=== PATIENT | male | born 1980 ===

== ENCOUNTER 2018-10-20 05:48 | Inpatient (IN) | payer OTHER ==
[~2018-10-20] VITALS: Ht 172.7 cm; Wt 84.4 kg
[2018-10-20] VITALS (16 sets, daily range): BP systolic 103–130; BP diastolic 54–86
[~2018-10-20 05:48] MED LIST: NKM
[2018-10-20] MEDS ORDERED: HYDROcodone/Acetamin 10/325 tab ORAL PRN (06:30)
[2018-10-20] MEDS ORDERED: PCA Morphine 1mg/ml 30 ML IV PRN (06:30)
[2018-10-20] MEDS ORDERED: Morphine Sulfate 4mg/ml Inj (IV USE ONLY) IM PRN (06:30)
[2018-10-20] MEDS ORDERED: LORazepam 0.5mg tab ORAL PRN (06:30)
[2018-10-20] MEDS ORDERED: Hydromorphone 0.5mg/0.5ml inj IVP PRN ×2 (06:30→06:45)
[2018-10-20] MEDS ORDERED: Midazolam 2mg/2ml Inj ONE (06:35)
[2018-10-20] MEDS ORDERED: fentaNYL 100 mcg/2 mL IV ONE (06:35)
[2018-10-20] MEDS ORDERED: Lidocaine 1% MPF 10mg/ml 5ml ONE (06:35)
[2018-10-20] MEDS ORDERED: Thrombin 5000 units TOPIC ONE (06:37)
[2018-10-20] MEDS ORDERED: Heparin 5000 units/ml inj ONE (06:37)
[2018-10-20] MEDS ORDERED: Lidocaine 1% Plain 30 ml INJ ONE (06:38)
[2018-10-20] MEDS ORDERED: Gelfoam Size TOPIC ONE (06:38)
[2018-10-20] MEDS ORDERED: Bacitracin 50000 Units Vial ONE (06:38)
[2018-10-20] MEDS ORDERED: Ropivacaine 5mg/ml Vial 30ml INJ ONE (06:38)
[2018-10-20] MEDS ORDERED: Midazolam 2mg/2ml Inj IVP PRN (06:45)
[2018-10-20] MEDS ORDERED: LORazepam Inj 2mg/ml 1ml IV PRN (06:45)
[2018-10-20] MEDS ORDERED: DiphenhydrAMINE 50mg/ml Inj IVP PRN (06:45)
[2018-10-20] MEDS ORDERED: fentaNYL 100 mcg/2 mL IV PRN (06:45)
[2018-10-20] MEDS ORDERED: LR 1000ml 1,000 ML IVLG SCH (06:45)
--- NOTE | 2018-10-20 06:45 | Anethesia Preoperative Eval ---
Anesthesia Pre-op PMH/ROS General Date of Evaluation: Oct 20, 2018 Anesthesiologist: Fito ASA Score: ASA 1 Mallampati Score Class I : Soft palate, uvula, fauces, pillars visible Class II: Soft palate, uvula, fauces visible Class III: Soft palate, base of uvula visible Class IV: Only hard plate visible Mallampati Classification: Class II Surgeon: Jey Diagnosis: Lumbar radiculopathy Surgical Procedure: ALIF L5-S1 Anesthesia History: none Family History: no anesthesia problems Allergies: Coded Allergies: No Known Allergies (Unverified , 10/20/18) Medications: see eMAR Patient NPO?: Yes NPO Date: Oct 19, 2018 NPO Time: 2200 Past Medical History Cardiovascular: Denies: HTN, CAD, IA, valve dz, arrhythmia, other Pulmonary: Denies: asthma, COPD, CAESAR, other Gastrointestinal/Genitourinary: Denies: GERD, CRI, ESRD, other Neurologic/Psychiatric: Denies: dementia, CVA, depression/anxiety, TIA, other Endocrine: Denies: DM, hypothyroidism, steroids, other HEENT: Denies: cataract (L), cataract (R), glaucoma, COUNCIL (L), COUNCIL (R), other Hematology/Immune: Denies: anemia, DVT, bleeding disorder, other Musculoskeletal/Integumentary: Denies: OA, RA, DJD, DDD, edema, other PSxH Narrative: Denies Anesthesia Pre-op Phys. Exam Physician Exam Last Vital Signs Date Time Temp Pulse Resp B/P (MAP) Pulse Ox O2 Delivery O2 Flow Rate FiO2 10/20/18 06:30 Room Air 10/20/18 06:22 97.0 64 18 130/86 (101) 97 Constitutional: NAD Cardiovascular: RRR Respiratory: CTA Airway Exam Mallampati Score: Class II MO: full ROM: full Teeth: intact Anesthesia Pre-op A/P Labs see chart Studies Pre-op Studies: EKG - sr Risk Assessment & Plan Assessment: ASA I Plan: GA Status Change Before Surgery: No Pre-Antibiotics Drug: Ancef 2g Given Within 1 Hr of Incision: Yes Caryn Cannon MD Oct 20, 2018 06:45
[2018-10-20] MEDS ORDERED: LR 1000ml ONE (07:00)
[2018-10-20] MEDS ORDERED: Acetaminophen (Non formulary) 100 ML IV ONE (07:00)
[2018-10-20] MEDS ORDERED: Dexamethasone 20mg/5ml IVP ONE (07:00)
[2018-10-20] MEDS ORDERED: Propofol 1,000mg/ 100ml btl IV ONE ×2 (07:00)
[2018-10-20] MEDS ORDERED: NS Irrig 1000ml ONE (07:00)
[2018-10-20] MEDS ORDERED: ceFAZolin sod 1 GM in NS 55 ML IVPB ONE (07:00)
[2018-10-20] MEDS ORDERED: Sterile Water Irrig 1000ml IRRIG ONE (07:00)
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
[2018-10-20] MEDS ORDERED: Metoclopramide 10mg/2ml Inj ONE (07:49)
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
--- NOTE | 2018-10-20 08:55 | Brief Operative Note ---
Immediate Post Operative Note Operative Note Pre-op Diagnosis: Trauma, instability. Procedure: ALIF L5-S1, Anterior Plate L5, S1. SSEP Local Xray Post-op Diagnosis: same as pre-op Findings: consistent w/pre-op dx studies Surgeon: Jey ISLAS Additional Surgeons: Meng ISLAS Anesthesiologist: anesthesia Anesthesia: general Specimen: yes Complications: none Condition: stable Fluids: anesthesia Estimated Blood Loss: minimal Drains: none Implant(s) used?: Yes Juan Khanna MD Oct 20, 2018 08:55
[2018-10-20] MEDS ORDERED: Naloxone 0.4mg/ml Inj IVP PRN (09:00)
--- NOTE | 2018-10-20 09:23 | Immediate Post-Op Evaluation ---
Immediate Post-Op Evalulation Immediate Post-Op Evalulation Procedure: ALIF L4-5 Date of Evaluation: Oct 20, 2018 Time of Evaluation: 09:24 IV Fluids: 1L Blood Products: 0 Estimated Blood Loss: 50 Urinary Output: 0 Blood Pressure Systolic: 106 Blood Pressure Diastolic: 64 Pulse Rate: 80 Respiratory Rate: 16 O2 Sat by Pulse Oximetry: 96 Temperature (Fahrenheit): 98.6 Pain Score (1-10): 0 Nausea: No Vomiting: No Complications 0 Patient Status: awake, reacts, patent, none Hydration Status: adequate Drug: Ancef Caryn San MD Oct 20, 2018 09:23
[2018-10-20] MEDS ORDERED: PCA Education Pamphlet MISC ONE (10:45)
[2018-10-20] MEDS ORDERED: Rate Change PCA 1 Each MISC PRN (10:45)
[2018-10-20] MEDS: PCA Morphine 1mg/ml 30 ML IV PRN ×2 (10:52→12:47)
--- NOTE | 2018-10-20 11:12 | Diagnostic Imaging Report ---
Indication: Back pain. Technique: Fluoroscopic imaging from spinal injury total number of images obtained: 3 Surgeon: Juan Khanna Total fluoroscopy time: 13.5 seconds Total fluoroscopy dose: 7.63 mGy Comparison: None Findings: Fluoroscopic views of the lower lumbar spine obtained during procedure submitted for archival to PACS. Views demonstrate surgical fusion at L5-S1 by means of anterior plate affixed by multiple screws. There is an interbody spacer. Impression: Fluoroscopic imaging from spinal surgery. Please see operative report.
--- NOTE | 2018-10-20 11:20 | NUR ---
NURSE NOTES: Patient arrived on unit via hospital bed. Stable. Denies pain or SOB. Patient oriented to call light, room, and unit. Patient instructed to use call light for assistance, verbalized understanding. Patient's has all belongings. Patient on HIGH DENSITY TALC COATER OPERATOR as ordered, HIGH DENSITY TALC COATER OPERATOR pamphlet and teaching given to patient by RN. Surgical dressing is clean, dry, and intact. Patient is in bed in locked and lowest position with call light within reach. Will continue to monitor.
[2018-10-20] MEDS: D5 1/2NS 1,000 ML IV SCH ×2 (12:38→21:26)
[2018-10-20] MEDS ORDERED: Chloraseptic Spray 20mL Bottle ORAL PRN (13:00)
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
[2018-10-20] MEDS: ceFAZolin sod 1 GM in D5W 55 ML IV SCH ×2 (14:44→23:54)
--- NOTE | 2018-10-20 15:15 | Operative Note - Dictated ---
DATE OF OPERATION: 10/20/2018 PRIMARY SURGEON: Juan Khanna, Ph.D., M.D. ADDITIONAL SURGEON: Matthew Fan M.D., vascular surgery. ANESTHESIA: General with intubation. ESTIMATED BLOOD LOSS: Minimal. COMPLICATIONS: None. POSTOP CONDITION: Good/stable. ADMITTING/PREOPERATIVE DIAGNOSIS: L5-S1 posttraumatic lumbar spine instability. POSTOPERATIVE DIAGNOSIS: L5-S1 posttraumatic lumbar spine instability. OPERATIVE PROCEDURE: Anterior interbody reconstruction and fusion with internal fixation, anterior internal plate fixation, placement of osteopromotive material, local anesthetic, SSEP monitoring, intraoperative fluoroscopy interpreted by surgeons. SPECIMEN: Disk fragments to pathology. Please see separate dictation for exposure and closure vascular surgery, Dr. Fan. PROCEDURE IN DETAIL: The patient was brought to the operating room and in supine position, general anesthesia with intubation was induced. IV antibiotics, IV Decadron were administered 30 minutes prior to incision time. Anterior abdomen was sterilely prepped draped free in usual sterile fashion. Exposure to the anterior aspect of the lumbar spine, please see separate report. Confirmation AP and lateral planes with needle marker placed into the disk space under direct high-power magnification, observation utilized for determination of midline as well as correct level for further surgery. Level marked, needle removed. Retractors were appropriately placed. Diskectomy to but not through the posterior longitudinal ligament was undertaken. SSEP monitoring stable at all times. No dural tears/cerebral spinal fluid leaks noted anytime during the procedure. Endplates were denuded of cartilage without violation of subchondral bone. Appropriate trials utilized for determination of correct depth with and lordosis. Trial was replaced with prosthesis and was implanted with osteopromotive material Bio-4. Tamped into position with appropriate orientation. Fit excellent. AP and lateral radiographs utilized determining excellent alignment position. Internal fixation kia (the number 4) placed into the inferior L5 superior S1 vertebral bodies. Wound irrigated with antibiotic-containing saline. Anterior internal plate fixation in a compressive fashion undertaken with fluoroscopic guidance. Purchase excellent. Screws locked into position. Wound irrigated with antibiotic-containing saline. Closure performed after AP and lateral radiographs were obtained recorded demonstrating correct position alignment. Local anesthetic applied by surgeon. Sterile bandage applied, maintained in place with tape. Juan Khanna M.D. DR: SUJATHA JOB#: [id number] CC:
[2018-10-20] MEDS ORDERED: Tamsulosin 0.4mg cap ORAL SCH (17:30)
[2018-10-20] MEDS ORDERED: Bethanechol 25mg Tab ORAL SCH (17:30)
[2018-10-20] MEDS: PCA shift volume MISC SCH (19:00)
--- NOTE | 2018-10-20 19:30 | NUR ---
HAND-OFF: Report given to Keke SALAZAR. Patient is stable.
--- NOTE | 2018-10-20 20:00 | NUR ---
Received a report from SANDOVAL Cruz. Done rounds. Will continue to monitor.
--- NOTE | 2018-10-20 21:00 | NUR ---
NURSE NOTES: Pt is awake and alert. Breathing is even and non labored. No acute distress noted. Spo2 96% with O2 NC 2L/min. No pain noted on op site. Op site is clear without any bleeding signs. Pt states he passes gas earlier. BS noted on LLQ and LRQ. RETAIL ASSISTANT MANAGER-Morphine- setting as 1mg bolus, 20min locked and 20mg max. Total 26.2ml recorded. I/S at bed side and reeducate to use it for lung complications every hour 10 times. Pt is cooperative to use I/S. Leave call light within reach. Bed is locked and lowest position. Will continue to monitor.
[2018-10-21] VITALS: BP 118/67
[2018-10-21 04:00] VITALS: BP 111/68
[2018-10-21] MEDS: D5 1/2NS 1,000 ML IV SCH ×4 (04:52→23:44)
[2018-10-21] MEDS: ceFAZolin sod 1 GM in D5W 55 ML IV SCH ×3 (06:23→23:44)
--- NOTE | 2018-10-21 06:26 | NUR ---
NURSE NOTES: Pt is awake and alert. Seen by Dr. Del Rio. Even though pt passed out gas yesterday, if pt passes gas out more in the morning, notify to Dr. Garcia for pt's condition to clear out diet. Will endorse next shit accordingly. Will continue to monitor.
[2018-10-21] MEDS: PCA shift volume MISC SCH (07:20)
--- NOTE | 2018-10-21 07:26 | NUR ---
HAND-OFF: Report given to Juan Corona RN.
--- NOTE | 2018-10-21 07:30 | NUR ---
NURSE NOTES: Patient lying in bed awake. No complain of pain or distress at this time. On BOOKING OFFICER for pain management. Surgical dressing intact and dry and Ice pack applied. IV dressing intact and dry. Bed lowest position. Call light within reach. Will continue to monitor.
[2018-10-21 08:00] VITALS: BP 111/74
--- NOTE | 2018-10-21 08:01 | Progress Note ---
DATE: 10/21/2018 ACUTE PAIN MANAGEMENT PHYSICIAN PROGRESS NOTE MEDICATIONS: Medication administration record reviewed. Medications include IV fluids, Pepcid, morphine BIOMEDICAL ENGINEER, Ancef, albuterol, Fioricet, Benadryl, Soma, Catapres, Chloraseptic spray, Zofran, [place], Mylanta, Phenergan, Ativan, Dilaudid, morphine, Tylenol, and Narcan. LABORATORY STUDIES: No interval laboratory studies. OBJECTIVE: VITAL SIGNS: Within normal limits. Afebrile, pulse 75, respirations 18, blood pressure 111/68, oxygen saturation 97% on room air. I spent over 60 minutes in consultation today. I saw the patient at the bedside with the nurse RN, Lexx and with the charge nurse RN, Giovanni. The patient has been voiding urine well. I have reviewed the patient's medication with the hospital pharmacist, Rusty. The patient has been compliant using his incentive spirometer. Later today this morning, the patient will start ambulating with physical therapy. The patient states that his pain is primarily at the incision area in the lower abdomen. Preoperatively, the patient's pain was primarily in the posterior lumbar spine. This is encouraging. The patient appears to have grossly normal motor function in the lower extremities with 5/5 dorsiflexion and 5/5 plantar flexion. We will see how the patient's pain level increase with increasing ambulation and activity later today. He has been using the morphine BIOMEDICAL ENGINEER sparingly and I will discontinue that this afternoon, so not to retard his baptist of normal bowel function. The patient believes he may have started passing flatus last night. However, I have recommended pre-confirmation for further flatus this morning before Dr. Khanna, had notified to advance his diet. The patient denies any nausea symptoms and does state that he has a good appetite presently. The patient's will be returning from home later this morning. The patient states that the already has a prescription from Dr. Khanna for outpatient narcotics. I have asked the patient to contact the embedded case manager at his trade mark attorney's office to help expedite filling the prescription at their recommended pharmacy. Arben Del Rio M.D. DR: FARIDA JOB#: [id number] CC:
--- NOTE | 2018-10-21 09:49 | 48 Hour Post Anesthesia Eval ---
Post Anesthesia Evaluation Procedure: ALIF L4-5 Date of Evaluation: Oct 21, 2018 Time of Evaluation: 09:49 Nausea: No Vomiting: No Elvin Lott MD Oct 21, 2018 09:49
[2018-10-21 12:00] VITALS: BP 116/70
[2018-10-21] MEDS ORDERED: D5 1/2NS 1000ml IV ONE (13:17)
[2018-10-21] MEDS ORDERED: Tubing IV Secondary IV ONE (13:17)
--- NOTE | 2018-10-21 14:16 | NUR ---
PT Note PT gunner completed, treatment initiated. Patient needs instructions on proper log rolling and proper body mechanics to improve his safety in mobility to enable him to return home. Addendum: 10/21/18 at 1416 by IKER LIGHT PT Amended: Links added.
--- NOTE | 2018-10-21 15:38 | NUR ---
NURSE NOTES: Spoke to regarding patient and new order received. Order read back and carried out. Will continue to monitor.
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
[2018-10-21 16:00] VITALS: BP 118/78
--- NOTE | 2018-10-21 19:30 | NUR ---
HAND-OFF: Report given to Brittnee NICK. Patient in stable condition.
--- NOTE | 2018-10-21 19:35 | NUR ---
NURSE NOTES: Received report from SANDOVAL Martinez. Patient resting in bed, alert. Visitors at bedside. Bed in low position, locked, side rails up x2, call light within reach. Will continue to monitor.
[2018-10-21 20:00] VITALS: BP 122/16
[2018-10-22] VITALS: BP 129/82
[2018-10-22 04:00] VITALS: BP 123/77
--- NOTE | 2018-10-22 04:55 | NUR ---
NURSE NOTES: Dr Del Rio called in to follow up on patient's progress. Discussed that patient is tolerating PO intake well, had BM last night. Dr Del Rio gave orders to saline lock IV and advance diet to soft for breakfast and regular for lunch. IVF discontinued, saline locked, flushed, intact.
--- NOTE | 2018-10-22 06:45 | Progress Note ---
DATE: 10/22/2018 ACUTE PAIN MANAGEMENT PHYSICIAN PROGRESS NOTE MEDICATIONS: Medication administration record reviewed. Medications include Chloraseptic spray, Zofran, Narcan, Dilaudid, [place], Pepcid, Benadryl, Catapres, Soma, Mylanta, Tylenol, NSAIDs. LABORATORY STUDIES: No interval laboratory studies. VITAL SIGNS: Within normal limits. Afebrile, pulse 57, respirations 16, blood pressure 123/77, oxygen saturation 98% on room air. I spent over 60 minutes in consultation today. I discussed the case with the surgeon, Dr. Khanna, along with the charge nurse, SANDOVAL Juarez, and Orthopedic floor nurse, SANDOVAL Beaulieu. The patient continues to do extremely well with his rehabilitation. He ambulated well with physical therapy training yesterday. He moves in and out of bed requiring minimal assistance. He did walk in the hallways with front-wheeled walker and he will continue with physical therapy training later this morning. Abdominal wound is clean and dry. The patient started passing positive flatus yesterday. We contacted Dr. Khanna, who advanced the patient's diet to full liquids. This diet was tolerated well. We will trial him on soft mechanical diet for breakfast later today. The patient stated he also had a normal bowel movement over the shift nurse manager earlier already. He has been compliant using his incentive spirometer. The patient appears grossly neurologically intact. His deep posterior back pain is much improved compared to preoperatively. He does still have anterior abdominal incisional pain, which seems to be improving as well. I stopped the DEVELOPMENT ENGINEER yesterday and the patient has been tolerating his pain levels on oral hydrocodone. I will continue the p.r.n. breakthrough Dilaudid as a rescue. I did leave a prescription for 20 tablets of [place] 10/325 for outpatient usage. The patient will return home to his at the appropriate time and his will assist with activities of daily living. The patient was encouraged to ambulate frequently for DVT prophylaxis, and he will remain on sequential compression pneumatic devices while here in the hospital. Overall, the patient is progressing extremely well. I counseled the patient to contact Dr. Khanna' office for showering and other followup instructions. The patient is agreeable with the plan and we will await discharge instructions from Dr. Khanna and the surgical team. Arben Gene Del Rio DR: Dean JOB#: [id number] CC:
[2018-10-22] MEDS: ceFAZolin sod 1 GM in D5W 55 ML IV SCH (07:23)
--- NOTE | 2018-10-22 07:30 | NUR ---
HAND-OFF: Report given to SANDOVAL Martinez. Patient stable.
--- NOTE | 2018-10-22 07:35 | NUR ---
NURSE NOTES: Patient lying in bed awake. No complain of pain or distress at this time. Skin intact and dry. Surgical dressing intact and dry. IV dressing intact and dry. Bed lowest position. Call light within reach. Will continue to monitor.
[2018-10-22 08:52] VITALS: BP 125/79
[2018-10-22] MEDS ORDERED: Docusate 100mg cap ORAL SCH (09:00)
--- NOTE | 2018-10-22 10:00 | NUR ---
NURSE NOTES: Spoke to regarding discharge and new order received. Order read back and carried out.
[2018-10-22] MEDS ORDERED: NORCO 10-325 T1 EACH ORAL (10:12)
--- NOTE | 2018-10-22 11:18 | NUR ---
NURSE NOTES: Patient discharged with family member in stable condition. Discharge instruction given to patient and verbalized understanding. Prescription and belonging given to patient. Instructed to keep surgical dressing intact and dry and follow up with MD. Patient verbalized understanding. IV and ID removed. Patient ambulated out with all personal belongings with steady gait.
[2018-10-22] MEDS ORDERED: D5 1/2NS 1000ml IV ONE (11:19)
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
--- NOTE | 2018-10-23 19:00 | Operative Note - Dictated ---
DATE OF OPERATION: 10/20/2018 VASCULAR SURGEON: Matthew Fan M.D. SPINE SURGEON: Juan Khanna M.D. PREOPERATIVE DIAGNOSIS: Lumbar pain. POSTOPERATIVE DIAGNOSIS: Lumbar pain. PROCEDURE PERFORMED: Anterior retroperitoneal exposure L5-S1, right retroperitoneal approach. INDICATIONS: The patient is a very pleasant gentleman who was seen in my office prior to surgery. He has been scheduled for anterior spine surgery at L5-S1. No prior anterior spine surgery. No history of deep venous thrombosis or bleeding complications was described. He is made aware of the risks of surgery including vascular injury, possible need for blood transfusion, deep vein thrombosis. DESCRIPTION OF FINDINGS: A low vertical midline incision was used. A right retroperitoneal approach was used. There was no peritoneal or ureteral violation. There was no vascular injury. Exposure of L5-S1 was obtained below the iliac bifurcation and confirmed using fluoroscopy. On completion, the peritoneum and ureter were intact. Iliac vessels were intact. BLOOD LOSS: Less than 100 mL. COMPLICATIONS: None. DESCRIPTION OF PROCEDURE: The patient was taken to the operating room. General anesthesia was used. Antibiotics were given. The patient's abdomen was prepped and draped. Appropriate time-out for the procedure taken. A low vertical midline incision made infraumbilically. The anterior fascia was incised longitudinally midline. A plane was identified posterior to the right rectus abdominis developed posterolaterally towards the patient's right. The retroperitoneal space was bluntly entered below the arcuate line. The peritoneum and ureter were mobilized together towards the patient's left exposing the right common iliac artery and vein. Dissection was carried on the level of the right common iliac artery. The anterior surface of L5-S1 was palpated. The peritoneum and ureter were mobilized towards the patient's left exposing the anterior surface of the L5 and S1. The Omni retractor blades were set in place. Fluoroscopy was then used to confirm the appropriate level. The instrumentation performed at L5-S1 will be dictated separately. On completion, the retractor was gently removed. Peritoneum and ureter were intact. Iliac vessels were intact. Blood loss was less than 100 mL. Complications were none. Anterior fascia was then closed using #1 PDS in a running fashion and the skin and subcutaneous tissue were closed with 3-0 Vicryl and 4-0 Monocryl in running subcuticular closure technique. Estimated blood loss is less than 100 mL. Matthew Fan M.D. DR: NARA JOB#: [id number] CC:
== END 2018-10-22 11:20 | disposition home or self-care (01) | DRG 460 ==
LOC: SDSOVERFLO 05:48 → 3E 11:10
PROC: 0SB40ZZ Excision of Lumbosacral Disc, Open Approach (ICD-10-PCS; principal; 2018-10-20 07:00)
PROC: 0SG30A0 Fusion of Lumbosacral Joint with Interbody Fusion Device, Anterior Approach, Anterior Column, Open Approach (ICD-10-PCS; principal; 2018-10-20 07:00)
DX: M53.2X7 Spinal instabilities, lumbosacral region (principal); G89.18 Other acute postprocedural pain; V89.2XXS Person injured in unspecified motor-vehicle accident, traffic, sequela
CPT/HCPCS: 36415; 72020; 76000; 86850; 86900; 86901; 87081; 94003; 94150; J2250; J2405; J2765